=== PATIENT | female | born 1995 | race Caucasian/White ===

== ENCOUNTER 2017-12-16 01:32 | Observation (INO) | payer OTHER ==
[~2017-12-16] VITALS: Ht 165.1 cm; Wt 81.6 kg
[2017-12-16 01:36] VITALS: BP 139/64
[2017-12-16 02:00] LABS: ABSOLUTE EOSINOPHILS 0.1 thou/uL (0.0-0.7); ABSOLUTE LYMPHOCYTES 0.9 thou/uL (0.8-5.3); ABSOLUTE MONOCYTES 0.4 thou/uL (0.0-1.2); ABSOLUTE NEUTROPHILS 2.7 thou/uL (1.6-8.1); BASOPHILS 0.6 %; EOSINOPHILS 1.7 %; HEMATOCRIT 36.9 % (37.0-47.0); HEMOGLOBIN 12.4 gm/dL (12.0-15.0); LYMPHOCYTES 21.2 %; MCH 28.1 pg (26.0-34.0); MCHC 33.5 g/dL (28.0-37.0); MCV 83.8 fL (80.0-100.0); MONOCYTES 10.6 %; MPV 7.9 fl. (7.2-11.1); NUCLEATED RBCS 0 /100WBC; PLATELET COUNT* 284 thou/uL (150-400); POLYS 65.9 %; RBC 4.41 mil/uL (4.20-5.00); RDW-CV 13.1 % (10.5-14.5); WBC 4.2 thou/uL (4.0-11.0)
[2017-12-16 02:06] LABS: ANION GAP 7 mmol/L (7-16); BUN 15 mg/dL (7-18); CALCIUM 8.9 mg/dL (8.5-10.1); CHLORIDE 104 mmol/L (98-107); CO2 26 mmol/L (21-32); CREATININE 0.9 mg/dL (0.6-1.3); GLUCOSE 96 mg/dL (70-99); POTASSIUM 3.4 mmol/L (3.5-5.1); SODIUM 137 mmol/L (136-145)
[2017-12-16 02:18] LABS: ALBUMIN 3.7 g/dL (3.4-5.0); ALKALINE PHOSPHATASE 190 U/L (46-116); LIPASE 177 U/L (73-393); NT-PRO BRAIN NAT PEPTIDE 53 pg/mL (<300); SGOT 623 U/L (15-37); SGPT 586 U/L (30-65); TOTAL BILIRUBIN 1.7 mg/dL (<0.1-1.0); TOTAL PROTEIN 7.5 g/dL (6.4-8.2); TROPONIN-I LEVEL <0.06 ng/mL (<0.06)
[2017-12-16 02:19] LABS: INFLUENZA B ANTIGEN None Detected (None Detect)
[2017-12-16 05:26] VITALS: BP 116/66
[2017-12-16 07:24] VITALS: BP 125/78
--- NOTE | 2017-12-16 07:26 | NUR ---
PATIENT ADMITTED TO ROOM 103 AT APPROXIMATELY 0540 FROM ED. PATIENT IS ALERT AND ORIENTED X 4. VSS ON RA. NO C/O PAIN AT THIS TIME. PATIENT ORIENTED TO ROOM AND POLICIES. FALL EDUCATION GIVEN AND FALL AGREEMENT SIGNED. ADMISSION ROUTINES IN PROGRESS. ASSESSMENT CHARTED. FLUID STARTED. PATIENT INSTRUCTED TO USE CALL LIGHT WHEN NEEDING ASSISTANCE. HOURLY ROUNDS TO BE MADE. WILL CONTINUE WITH PLAN OF CARE.
[2017-12-16 08:00] VITALS: BP 123/79
[2017-12-16] MEDS ORDERED: OSELB75 PO (11:32)
[2017-12-16 11:34] VITALS: BP 123/79
--- NOTE | 2017-12-16 12:14 | NUR ---
ASSUMED CARE OF PATIENT AFTER REPORT THIS MORNING. PATIENT AWAKE, ALERT, AND ORIENTED APPROPRIATELY. PHYSICAL ASSESSMENT COMPLETED AND CHARTED. NO COMPLAINTS OF PAIN. GIVEN SCHEDULED MEDICATIONS, SEE EMAR FOR DOCUMENTATION. VITAL SIGNS STABLE. OXYGEN SATURATION WITHIN NORMAL LMITS ON ROOM AIR. PATIENT IS UP AD FLORECITA. RECEIVED ORDERS TO DISCHARGE HOME. FOLLOW UP WITH SURGERY REGARDING GALBLADDER AND GI REGARDING LIVER ENZYMES. WAS ALSO INSTRUCTED TO FOLLOW UP WITH PCP REGARDING LABS ON MONDAY (LIVER ENZYMES). IV DISCONTINUED. DISCHARGE PAPERWORK COMPLETED AND SIGNED BY ALL APPROPRIATE PARTIES, ON PATIENT'S CHART. PATIENT DISCHARGED AT THIS TIME.
--- NOTE | 2017-12-16 13:24 | EKG ---
[place] [address] ELECTROCARDIOGRAM REPORT Name: MAURICIO FRANCO MINA Room: [address] DIS IN M.R.#: [id number] Admission: 12/16/17 Attend Phys: Arthur Page MD Discharge: 12/16/17 Date of : [birth year] Report #: [id number] THIS REPORT FOR: //name// [facility] ED Test Date: 2017-12-16 Test Time: 01:38:48 Pat Name: MAURICIO FRANCO Department: Room: [facility] Gender: F Sys Dir: BD : 1995 Requested By: Abel Hsieh Order Number: [id number] MD: Danny Redding Measurements Intervals [place] Rate: 87 P: 51 MS: 154 QRS: 41 QRSD: 92 T: 0 QT: 321 QTc: 386 Interpretive Statements Sinus rhythm Nonspecific ST-T wave abnormality Baseline wander in lead(s) II,V4,V5,V6 No previous ECG available for comparison Electronically Signed On 12-16-2017 13:24:37 ENVIRONMENTAL PROFESSIONAL by Danny Redding [email or web address] <ELECTRONICALLY SIGNED> By: Danny Redding MD, [facility] 12/16/17 1324 0138 0138 Danny Redding MD, [facility] /EPI
--- NOTE | 2018-01-04 14:50 | CON ---
[address] [address] CONSULTATION Name: MAURICIO FRANCO Room: [address] Preeti Huitron#: [id number] Admission: 12/16/17 Attend Phys: Arthur Page MD Discharge: 12/16/17 Date of : [birth year] Report #: [id number] THIS REPORT FOR: //name// CC: Arthur Dias DATE OF SERVICE: 12/16/2017 REQUESTING PHYSICIAN: Arthur Page M.D. REASON FOR CONSULT: Elevated liver enzymes. HISTORY OF PRESENT ILLNESS: This is a 22-year-old female who presented to hospital with back pain and symptoms of nausea and vomiting. She also complained of mild sore throat and rhinorrhea. During hospitalization, the patient found to have antigen for influenza A. She also found to have elevated liver enzymes, transaminases in range of 500-600 and bilirubin of 1.7. She does not have fever, leukocytosis or any abdominal pain. Her last bowel movement was yesterday. PAST MEDICAL HISTORY: The patient essentially is healthy. ALLERGIES: No known drug allergy. MEDICATIONS AT HOME: The patient does not take any meds at home. SOCIAL HISTORY: The patient may occasionally have an alcoholic beverage, but denies tobacco or drug use. FAMILY HISTORY: Noncontributory. PHYSICAL EXAMINATION: VITAL SIGNS: Reveals blood pressure of 123/79, respiration 18, pulse 84, temperature 98.2. LUNGS: Clear. CARDIOVASCULAR: Regular. ABDOMEN: Soft, nontender, nondistended. Bowel sounds are positive. NEUROLOGIC: The patient is alert, oriented x 3. LABORATORY DATA: Reveal sodium of 137, potassium 3.4, BUN is 15, creatinine 0.9, glucose 96, AST is 623, ALT 586, alkaline phosphatase 190, total bilirubin is 1.7. D-dimer is 2.15. WBC is 4.2, hemoglobin is 12.4 with platelet of 284. Influenza A antigen is positive. IMAGING: CT and abdominal ultrasound were obtained, which showed mildly thickened gallbladder, which is also distended. [place] [address] CONSULTATION Name: MAURICIO FRANCO [facility] Room: [address] Preeti Huitron#: [id number] Admission: 12/16/17 Attend Phys: Arthur Page MD Discharge: 12/16/17 Date of : [birth year] Report #: [id number] without any pericholecystic fluid. Common bile duct is not distended both in the CT and ultrasound. ASSESSMENT AND PLAN: The patient with elevated liver enzymes and bilirubin, who also has cholelithiasis and mildly thickened gallbladder. She is completely asymptomatic. I would consider a GGT. She will need a followup on her liver enzymes. If the bilirubin increases, we may consider magnetic resonance cholangiopancreatography. Surgery is involved with her care as well. We will await surgical input. <ELECTRONICALLY SIGNED> By: Truong Marin MD 01/04/18 1450 1118 [id number] Marin MD /nt
[2018-04-14] MEDS ORDERED: HYDROCODON-ACE1 EAC7 PO (06:52)
== END 2017-12-16 12:16 | disposition home or self-care (01) ==
LOC: M.ERS 01:32 → M.TBA-ER 03:50 → M.ORTHSURG 03:50
PROVIDERS: Emergency Medicine Emergency Medical Services; ADMIT Internal Medicine
DX: J11.1 Influenza due to unidentified influenza virus with other respiratory manifestations (principal); R79.89 Other specified abnormal findings of blood chemistry; E86.0 Dehydration; K80.20 Calculus of gallbladder without cholecystitis without obstruction; R65.10 Systemic inflammatory response syndrome (SIRS) of non-infectious origin without acute organ dysfunction

== ENCOUNTER 2018-02-15 17:34 | Emergency (ER) | payer OTHER ==
[~2018-02-15] VITALS: Ht 165.1 cm; Wt 81.7 kg
[~2018-02-15 17:34] MED LIST: OSELB75 PO
[2018-02-15 17:49] LABS: URINE BILIRUBIN NEGATIVE (Negative); URINE BLOOD NEGATIVE (Negative); URINE CLARITY CLEAR; URINE COLOR YELLOW; URINE GLUCOSE-RANDOM NEGATIVE (Negative); URINE KETONES NEGATIVE (Negative); URINE LEUKOCYTES-REFLEX NEGATIVE (Negative); URINE NITRITE-REFLEX NEGATIVE (Negative); URINE PROTEIN 2+ (Negative); URINE SPECIFIC GRAVITY 1.015 (1.005-1.030); URINE UROBILINOGEN 0.2 E.U./dl (0.2-1.0)
[2018-02-15 18:00] LABS: CRYSTALS None Seen /LPF (None Seen); HYALINE CASTS 0-3 Few /LPF (None Seen); MUCUS >6 Heavy strn/LPF (None Seen); SQUAMOUS >10 Many /LPF (0-3)
[2018-02-15 18:02] LABS: URINE WBC-REFLEX 0-5 Rare /HPF (0-5)
[2018-02-15 18:03] LABS: URINE RBC 0-2 Rare /HPF (0-2)
[2018-02-15 18:14] LABS: ABSOLUTE EOSINOPHILS 0.1 thou/uL (0.0-0.7); ABSOLUTE LYMPHOCYTES 1.6 thou/uL (0.8-5.3); ABSOLUTE NEUTROPHILS 13.1 thou/uL (1.6-8.1); BASOPHILS 0.2 %; EOSINOPHILS 0.6 %; HEMATOCRIT 38.5 % (37.0-47.0); HEMOGLOBIN 12.7 gm/dL (12.0-15.0); LYMPHOCYTES 10.3 %; MCH 27.3 pg (26.0-34.0); MCHC 32.9 g/dL (28.0-37.0); MCV 83.1 fL (80.0-100.0); MONOCYTES 6.5 %; MPV 8.2 fl. (7.2-11.1); NUCLEATED RBCS 0 /100WBC; PLATELET COUNT* 360 thou/uL (150-400); POLYS 82.4 %; RBC 4.63 mil/uL (4.20-5.00); RDW-CV 12.8 % (10.5-14.5); WBC 15.8 thou/uL (4.0-11.0)
[2018-02-15 18:22] LABS: CALCIUM 9.2 mg/dL (8.5-10.1); CREATININE 0.8 mg/dL (0.6-1.3); POTASSIUM 3.6 mmol/L (3.5-5.1)
[2018-02-15 18:27] LABS: ALBUMIN 3.9 g/dL (3.4-5.0); TOTAL BILIRUBIN 0.9 mg/dL (<0.1-1.0); TOTAL PROTEIN 7.6 g/dL (6.4-8.2)
[2018-02-15] MEDS ORDERED: NAPROSYN500 MG PO (19:55)
[2018-02-15] MEDS ORDERED: TRAMADOL 50 MG50 MG PO (19:55)
[2018-02-15] MEDS ORDERED: PHENERGAN 25 MG25 M1 PO (19:55)
[2018-02-15 20:11] VITALS: BP 129/71
[2018-04-14] MEDS ORDERED: HYDROCODON-ACE1 EAC7 PO (06:52)
== END 2018-02-15 20:11 | disposition home or self-care (01) ==
LOC: M.ERS 17:34
PROVIDERS: Physician Assistant
DX: N83.202 Unspecified ovarian cyst, left side (principal)

== ENCOUNTER 2018-04-12 15:33 | Inpatient (IN) | payer OTHER ==
[~2018-04-12] VITALS: Ht 165.1 cm; Wt 89.8 kg
[~2018-04-12 15:33] MED LIST changes: -HYDROCODON-ACE1 EAC7 PO
[2018-04-12 15:42] VITALS: BP 116/73
[2018-04-12 16:01] LABS: ABSOLUTE BASOPHILS 0.1 thou/uL (0.0-0.2); ABSOLUTE EOSINOPHILS 0.3 thou/uL (0.0-0.7); ABSOLUTE LYMPHOCYTES 2.3 thou/uL (0.8-5.3); ABSOLUTE MONOCYTES 0.6 thou/uL (0.0-1.2); ABSOLUTE NEUTROPHILS 3.9 thou/uL (1.6-8.1); BASOPHILS 0.8 %; EOSINOPHILS 4.5 %; HEMATOCRIT 36.8 % (37.0-47.0); HEMOGLOBIN 12.5 gm/dL (12.0-15.0); LYMPHOCYTES 32.2 %; MCH 28.1 pg (26.0-34.0); MCV 82.6 fL (80.0-100.0); MONOCYTES 7.9 %; MPV 8.3 fl. (7.2-11.1); NUCLEATED RBCS 0 /100WBC; PLATELET COUNT* 412 thou/uL (150-400); POLYS 54.6 %; RBC 4.46 mil/uL (4.20-5.00); RDW-CV 13.4 % (10.5-14.5); WBC 7.2 thou/uL (4.0-11.0)
[2018-04-12 16:10] LABS: APTT 27.5 Seconds (25.0-31.3); PROTIME 9.6 Seconds (9.20-11.50)
[2018-04-12 16:15] LABS: CALCIUM 8.7 mg/dL (8.5-10.1); CREATININE 0.7 mg/dL (0.6-1.3); POTASSIUM 3.6 mmol/L (3.5-5.1)
[2018-04-12 16:16] LABS: URINE BLOOD NEGATIVE (Negative); URINE CLARITY CLEAR; URINE COLOR YELLOW; URINE GLUCOSE-RANDOM NEGATIVE (Negative); URINE KETONES NEGATIVE (Negative); URINE LEUKOCYTES NEGATIVE (Negative); URINE NITRITE NEGATIVE (Negative); URINE PROTEIN NEGATIVE (Negative); URINE SPECIFIC GRAVITY >= 1.030 (1.005-1.030)
[2018-04-12 16:19] LABS: ALBUMIN 3.4 g/dL (3.4-5.0); TOTAL BILIRUBIN 2.2 mg/dL (<0.1-1.0); TOTAL PROTEIN 7.4 g/dL (6.4-8.2)
[2018-04-12 16:19] LABS: ICTOTEST (BILI CONFIRMATORY) Positive (Negative); URINE BILIRUBIN 2+ (Negative)
[2018-04-12 17:25] VITALS: BP 125/64
[2018-04-12 20:30] VITALS: BP 121/77
[2018-04-12 23:57] VITALS: BP 116/65
[2018-04-13 03:45] VITALS: BP 105/57
[2018-04-13 04:04] LABS: ABSOLUTE EOSINOPHILS 0.2 thou/uL (0.0-0.7); ABSOLUTE LYMPHOCYTES 1.9 thou/uL (0.8-5.3); ABSOLUTE MONOCYTES 0.5 thou/uL (0.0-1.2); ABSOLUTE NEUTROPHILS 3.9 thou/uL (1.6-8.1); BASOPHILS 0.6 %; EOSINOPHILS 2.4 %; HEMATOCRIT 33.7 % (37.0-47.0); LYMPHOCYTES 29.5 %; MCH 27.6 pg (26.0-34.0); MCHC 32.8 g/dL (28.0-37.0); MCV 84.3 fL (80.0-100.0); MONOCYTES 8.2 %; MPV 8.6 fl. (7.2-11.1); NUCLEATED RBCS 0 /100WBC; POLYS 59.3 %; RDW-CV 13.8 % (10.5-14.5); WBC 6.6 thou/uL (4.0-11.0)
[2018-04-13 04:18] LABS: PLATELET COUNT* 337 thou/uL (150-400)
[2018-04-13 04:30] LABS: ALBUMIN 2.9 g/dL (3.4-5.0); CALCIUM 8.1 mg/dL (8.5-10.1); CREATININE 0.7 mg/dL (0.6-1.3); MAGNESIUM 1.8 mg/dL (1.8-2.4); POTASSIUM 3.9 mmol/L (3.5-5.1); TOTAL BILIRUBIN 1.4 mg/dL (<0.1-1.0); TOTAL PROTEIN 5.9 g/dL (6.4-8.2)
[2018-04-13 13:05] VITALS: BP 105/57; BP 110/72
[2018-04-13 20:05] VITALS: BP 114/66
[2018-04-14 00:20] VITALS: BP 118/73
[2018-04-14 03:43] VITALS: BP 104/61
[2018-04-14] MEDS ORDERED: HYDROCODON-ACE1 EAC7 PO ×2 (06:52)
[2018-04-14 09:53] VITALS: BP 118/64
--- NOTE | 2018-04-17 14:41 | OP ---
[address] [address] OPERATIVE REPORT Name: MAURICIO FRANCO Deirdre Room: [address] IN M.R.#: [id number] Admission: 04/12/18 Attend Phys: Jasmina Arredondo MD Discharge: 04/14/18 Date of : [birth year] Report #: [id number] THIS REPORT FOR: //name// CC: Jasmina Salehgie [facility] Primary Doctor DICTATED BY: Jose Irwin DO DATE OF SERVICE: 04/13/2018 PREOPERATIVE DIAGNOSIS: Cholecystitis with cholelithiasis, status post ERCP for choledocholithiasis. POSTOPERATIVE DIAGNOSIS: Acute on chronic cholecystitis with cholelithiasis, status post ERCP for choledocholithiasis. SURGEON: Aleena Porter DO. INFORMATION SYSTEMS SECURITY OFFICER: Yousif Irwin, PGY-3; and Aris Huber, PGY-1. OPERATIONS PERFORMED: Laparoscopic cholecystectomy. ANESTHESIA: General and local. ESTIMATED BLOOD LOSS: 2 mL. SPECIMENS: Gallbladder and contents. COMPLICATIONS: None. INDICATIONS: Notably distended gallbladder with omental adhesions and gallstones. HISTORY OF PRESENT ILLNESS: The patient is a very pleasant 22-year-old female who presented to the ER yesterday complaining of upper abdominal pain. She had an abdominal ultrasound as well as some lab work performed that was indicative of choledocholithiasis as well as cholelithiasis. The patient had a surgery and Gastroenterology consult was placed from the ER. The GI physician took the patient for an ERCP last night and removed several stones from the CBD and performed a sphincterotomy. We repeated a lipase and labs on the patient today and her lipase remained normal and her labs were trending down. We elected to suggest performing a laparoscopic cholecystectomy to remove the gallbladder and the patient agreed to the same. Details of the procedure were reviewed at length with the patient and all questions were answered at bedside. Benefits, risks, complications were also discussed and [place] [address] OPERATIVE REPORT Name: MAURICIO FRANCO Deirdre Room: [address] IN [facility].#: [id number] Admission: 04/12/18 Attend Phys: Jasmina Arredondo MD Discharge: 04/14/18 Date of : [birth year] Report #: [id number] infection, bleeding, hernias at incision sites, injury to surrounding structures such as small bowel, stomach and common bile duct, anesthesia risks, and other common complications. The patient voiced clear understanding and wished to proceed. DESCRIPTION OF PROCEDURE: After the appropriate consents were obtained, the patient was taken to the operating room, laid in supine position. She had SCDs placed on her bilateral lower extremities and a safety strap placed across her lap. She had a foot plate placed at the bottom of the bed and secured tightly. Her right arm was tucked to her side and the left arm was placed out. All lines were placed by Anesthesia and the patient received perioperative antibiotics. The patient was then sedated and intubated by anesthesia without any difficulty. Her abdomen was then exposed and prepped and draped in a standard sterile fashion. We elected to start with an infraumbilical incision and began by using 0.5% Marcaine at this site. Then, using 11 blade scalpel between two Adson pickups, we made our initial incision in infraumbilical area. We dissected down through the subcutaneous tissue using blunt dissection with S retractors. Once we encountered the anterior abdominal wall fascia, it was grasped and elevated between 2 Lupillo clamps. The fascia was then incised using electrocautery and the abdominal cavity was entered bluntly using a hemostat. A finger was used to sweep the incision to ensure there were no shawna-incisional adhesions and none were present. We placed 2 separate 0 Vicryl sutures on either side of the fascia to secure our Estela trocar. The Estela trocar was introduced into the abdomen and the patient's belly was insufflated to 15 mmHg. The previously placed 2-0 Vicryl sutures were then secured to the Estela trocar. The camera was then introduced to the patient's abdomen and initial 4-point inspection revealed no significant abnormalities. We then elected to place our subxiphoid port. We first injected the site with 0.5% Marcaine and then made an 11 mm incision for our trocar. This was placed under direct visualization. A blunt grasper was used to find the gallbladder and it was found after sweeping down some omentum and grasping the gallbladder with a blunt grasper. We then placed our 2 right lateral abdomen ports. Both of these were 5 mm ports and were placed under direct visualization. The patient was then placed in the head-up position and tilted to the left. We used a blunt grasper to grasp the gallbladder, which was then elevated anterior and cephalad. There were some notable adhesions to the lateral edge of the gallbladder, which were taken down bluntly and using electrocautery. We did ensure to be very cautious in doing so and stayed high upon the gallbladder away from any structures that were lying below. Once the adhesions were completely taken down, we were able to visualize Eder's pouch. Eder's pouch was grasped and retracted laterally and then using blunt dissection, we were able to dissect out our duct and our artery. The artery was sitting posterior to the duct and the cystic duct had a small vessel coursing alongside of it right beneath Calot's node. Once the duct and artery were dissected out completely. We were able to visualize our critical view. There were 2 and only 2 structures going into the gallbladder and we were able to visualize the inferior edge of the liver. [place] [address] OPERATIVE REPORT Name: FRANCOMAURICIO A Room: [address] IN [facility].#: [id number] Admission: 04/12/18 Attend Phys: Jasmina Arredondo MD Discharge: 04/14/18 Date of : [birth year] Report #: [id number] obtained, we elected to place clips on the duct and the artery. Three clips were placed proximally on the duct and one clip distally. Two clips were placed proximally on the artery and one clip distally. We did clip the little small vessel that was running with a duct with a clip proximal and distal. All other structures then incised using endoscopic scissors. The clips were then inspected and appeared to be intact and in place without any oozing or bleeding. We then removed the gallbladder from the liver bed using electrocautery. Any bleeding that was occurring during this portion of the surgery was adequately controlled using electrocautery. Once the gallbladder was completely removed, it was placed into the EndoCatch pouch. The liver bed as well as the clips were once again inspected. The liver bed was dry and the clips appeared to be in place and intact with no active bleeding or oozing. The patient was returned to the supine position and we removed our ports that were previously placed. These were also removed under direct visualization. There was no active bleeding from either of the port sites. We allowed the abdomen to desufflate and the gallbladder was removed from the infraumbilical port site within the EndoCatch pouch. She did have some notably very small gallstones present within the gallbladder. The specimen was then passed off and sent to pathology. We elevated the fascia using our previously-placed 0 Vicryl sutures and grasped between 2 Lupillo clamps. We closed the fascia using a [id number] 0 Vicryl suture. We used a finger before tying down our suture to ensure there were no structures within our incision and none are present. It was tied down tightly. There appeared to be no active defects in the fascia. The skin was then closed using 4-0 Monocryl in an inverted interrupted fashion. The remainder of the port sites were also closed in this fashion using 4-0 Monocryl in an inverted interrupted fashion. The remainder of the 0.5% Marcaine was used at each of the incision sites for local anesthesia. I cleaned the patient's abdomen thoroughly and dried it completely. We then used Mastisol, Steri-Strips and gauze on each of the incision sites and placed a sterile Tegaderm OpSite over each of them. The patient tolerated the procedure well. All counts were correct x 2 at the end of the procedure. Dr. Porter was present and scrubbed for the entirety of the procedure. The patient will be allowed to return to her room where she will recover and likely would be discharged home tomorrow. <ELECTRONICALLY SIGNED> By: Aleena Porter DO 04/17/18 1441 1623 1908Chnilton Porter DO /nt
--- NOTE | 2018-04-19 16:59 | CON ---
[address] [address] CONSULTATION Name: SALVADORMAURICIO A Room: [address] IN M.R.#: [id number] Admission: 04/12/18 Attend Phys: Jasmina Arredondo MD Discharge: 04/14/18 Date of : [birth year] Report #: [id number] THIS REPORT FOR: //name// CC: Jasmina Howard DO DATE OF SERVICE: 04/12/2018 REFERRING PHYSICIAN: Jasmina Collins MD TIME OF SERVICE: 1700 hours. REASON FOR CONSULTATION: Abdominal pain. IMPRESSION: 1. Severe right upper quadrant pain with elevated liver function test, most compatible with impacted common bile duct stone or stones. 2. Symptomatic cholelithiasis with a need for cholecystectomy. RECOMMENDATIONS: 1. Proceed with ERCP tonight to clear the common bile duct of any stones or debris. 2. We will recommend the patient to undergo a laparoscopic cholecystectomy by Surgery in the very near future secondary to recurrent episodes of symptomatic cholelithiasis. 3. I have discussed the plan with the patient as well as her and family and everyone is agreement to the same. HISTORY OF PRESENT ILLNESS: The patient is a very pleasant 22-year-old white female who had problems with symptomatic cholelithiasis. During her has had a couple of bouts of problems related to same. She has actually been hospitalized back in November this year for problems related to the same. She was supposed to get her gallbladder taken out, but has not had done so. She was then started having problem with very severe abdominal pain starting this last couple of days. She is having problem with eating and drinking because of the same. She had noticed that her stools have become a little bit value engineer and her urine has become a little bit darker. She is not having any fever or chills. She was seen through the Emergency Room and admitted to the hospital for further evaluation and treatment. ALLERGIES: None. MEDICATIONS: [place] [address] CONSULTATION Name: MAURICIO FRANCO Room: [address] IN [facility].#: [id number] Admission: 04/12/18 Attend Phys: Jasmina Arredondo MD Discharge: 04/14/18 Date of : [birth year] Report #: [id number] PAST MEDICAL AND SURGICAL HISTORY: Negative. She has had previous childbirth. SOCIAL HISTORY: , does not smoke or drink. FAMILY HISTORY: Negative. PHYSICAL EXAMINATION: GENERAL: A pleasant 22-year-old white female who is awake and alert. CARDIOPULMONARY EXAMINATION: Revealed a regular rate and rhythm. LUNGS: Clear. ABDOMEN: Soft, she is tender in the epigastric and right upper quadrant. No rebound or guarding noted. LABORATORY TESTS: Revealed white count 7.2, hemoglobin 12.5, platelet count 412,000; MCV is 82.6 and RDW 13.4. Sodium 138, potassium 3.6, chloride 104, bicarbonate 25, BUN is 11, creatinine 0.7. Her GFR is 103. Total bilirubin 2.2, alkaline phosphatase is 237, AST is 95, ALT 276, albumin 3.4. Lipase normal. IMAGING: Abdominal ultrasound revealed multiple gallstones, post-dilated common bile duct about 7 mm. DISCUSSION: At the present time, the patient is symptomatic cholelithiasis and choledocholithiasis. We will proceed with the ERCP tonight and make further recommendations thereafter. <ELECTRONICALLY SIGNED> By: Bud Jones DO 04/19/18 1659 1740 [id number] Jones DO /nt
== END 2018-04-14 11:00 | disposition home or self-care (01) | DRG 419 ==
LOC: M.ERS 15:33 → M.ORTHSURG 16:27 → M.TBA-ER 16:27 → M.ORTHSURG 17:10
PROVIDERS: Physician Assistant; Surgery; ADMIT Internal Medicine
DX: K80.47 Calculus of bile duct with acute and chronic cholecystitis with obstruction (principal); R74.0 Nonspecific elevation of levels of transaminase and lactic acid dehydrogenase [LDH]; E80.6 Other disorders of bilirubin metabolism; Z79.899 Other long term (current) drug therapy

== ENCOUNTER → 2018-04-12 | Outpatient (CLI) | payer OTHER ==
[~2018-04-12] MED LIST changes: +HYDROCODON-ACE1 EAC7 PO; +NAPROSYN500 MG PO; +PHENERGAN 25 MG25 M1 PO; +TRAMADOL 50 MG50 MG PO
== END ==
LOC: M.ULTRA 11:14
DX: K80.20 Calculus of gallbladder without cholecystitis without obstruction (principal)